=== PATIENT | female | born 1980 | race Hispanic/Latino ===

== ENCOUNTER 2019-01-01 01:51 | Emergency (ER) | payer OTHER ==
[~2019-01-01] VITALS: Ht 157.5 cm; Wt 82.6 kg
[~2019-01-01 01:51] MED LIST: CEFTIN500 MG PO; PEPCID20 MG PO; ULTRAM50 MG PO
--- OUTSIDE RECORDS SUMMARY | 2019-01-01 01:54 | XMS REPORT ---
[facility] Address Unknown Phone Unavailable Care Team Providers Care Swimming Coach Or Instructor Name Role Phone Unavailable Unavailable Payers Payer Name Policy Type Policy Number Effective Date Expiration Date Problems This patient has no known problems. Allergies, Adverse Reactions, Alerts Allergy Name Allergy Type Status Severity Reaction(s) Onset Date Inactive Date Treating Clinician Comments No Known Allergies DA Active U 2017-03-01 00:00:00 Medications This patient has no known medications. Results Test Description Test Time Test Comments Text Results Atomic Results Result Comments GLUBED 2018-12-07 17:29:00 GLUBED (test code=GLUBED) 134 MG/DL 70-110 Performed by certified suction operator at [facility] [id number] 12:03:00* Test Item Value Reference Range Comments GLUBED (test code=GLUBED) 149 MG/DL 70-110 Performed by certified suction operator at [facility] [id number] 08:19:00* Test Item Value Reference Range Comments GLUBED (test code=GLUBED) 137 MG/DL 70-110 Performed by certified suction operator at [facility] UA CULT [id number] 20:49:00* Test Item Value Reference Range Comments UA WBC (test code=WBCU) >50 WBC/HPF 0-3 UA SQUAMOUS CELLS (test code=SQU) 0-5 /HPF NONE SEEN UA CULTURE NEEDED? (test code=UACULT) YES,WBC>10 & EPI<=25 Criteria Culture Chk Criteria met, Urine Culture in-process. [id number] 20:19:00* Test Item Value Reference Range Comments GLUBED (test code=GLUBED) 206 MG/DL 70-110 Performed by certified suction operator at [facility] [id number] 16:48:00* Test Item Value Reference Range Comments GLUBED (test code=GLUBED) 153 MG/DL 70-110 Performed by certified suction operator at [facility] [id number] 12:22:00* Test Item Value Reference Range Comments GLUBED (test code=GLUBED) 154 MG/DL 70-110 Performed by certified suction operator at [facility] [id number] 11:13:00* Test Item Value Reference Range Comments GLUBED (test code=GLUBED) 139 MG/DL 70-110 Performed by certified suction operator at [facility] CBC W/AUTO [id number] 11:11:00* Test Item Value Reference Range Comments WHITE BLOOD CELL (test code=WBC) 7.11 x10 3/uL 4.5-11.0 RED BLOOD CELL (test code=RBC) 3.42 x10 6/uL 3.54-5.02 HEMOGLOBIN (test code=HGB) 8.3 g/dL 11.0-15.0 HEMATOCRIT (test code=HCT) 27.4 % 33.0-45.0 MEAN CELL VOLUME (test code=MCV) 80.1 fL 81.0-99.0 MEAN CELL HGB (test code=MCH) 24.3 pg 27.0-33.0 MEAN CELL HGB CONCETRATION (test code=MCHC) 30.3 g/dL 33.0-37.0 RED CELL DISTRIBUTION WIDTH CV (test code=RDW) 15.5 % 11.5-14.5 RED CELL DISTRIBUTION WIDTH SD (test code=RDW-SD) 45.1 fL 37.0-54.0 PLATELET COUNT (test code=PLT) 267 x10 3/uL 150-400 MEAN PLATELET VOLUME (test code=MPV) 11.1 fL 7.0-9.0 NEUTROPHIL % (test code=NT%) 61.1 % 56.0-77.0 IMMATURE GRANULOCYTE % (test code=IG%) 0.8 % 0.0-2.0 LYMPHOCYTE % (test code=LY%) 25.6 % 14.0-32.0 MONOCYTE % (test code=MO%) 9.6 % 4.8-9.0 EOSINOPHIL % (test code=EO%) 2.3 % 0.3-3.7 BASOPHIL % (test code=BA%) 0.6 % 0.0-2.0 NUCLEATED RBC % (test code=NRBC%) 0.0 % 0-0 NEUTROPHIL # (test code=NT#) 4.35 x10 3/uL 2.0-7.6 IMMATURE GRANULOCYTE # (test code=IG#) 0.06 x10 3/uL 0.00-0.03 LYMPHOCYTE # (test code=LY#) 1.82 x10 3/uL 1.0-3.8 MONOCYTE # (test code=MO#) 0.68 x10 3/uL 0.1-0.8 EOSINOPHIL # (test code=EO#) 0.16 x10 3/uL 0.0-0.2 BASOPHIL # (test code=BA#) 0.04 x10 3/uL 0.0-0.2 NUCLEATED RBC # (test code=NRBC#) 0.00 x10 3/uL 0.0-0.1 MANUAL DIFF REQUIRED (test code=MDIFF) NO SLIDE REVIEWED, CONSISTENT WITH AUTO DIFF. BASIC METABOLIC [id number] 08:02:00* Test Item Value Reference Range Comments SODIUM (test code=NA) 140 mEq/L 134-147 POTASSIUM (test code=K) 3.2 mEq/L 3.4-5.0 CHLORIDE (test code=CL) 111 mEq/L 100-108 CARBON DIOXIDE (test code=CO2) 20 mEq/L 21-33 ANION GAP (test code=GAP) 12 0-20 GLUCOSE (test code=GLU) 132 mg/dL 70-110 BLOOD UREA NITROGEN (test code=BUN) 8 mg/dL 7-18 GLOMERULAR FILTRATION RATE (test code=GFR) 113.1 105-110 Units of measure=ml/min/1.73 m2 CREATININE (test code=CREAT) 0.6 mg/dL 0.6-1.3 CALCIUM (test code=CA) 9.5 mg/dL 8.0-10.5 CBC W/AUTO [id number] 07:22:00* Test Item Value Reference Range Comments WHITE BLOOD CELL (test code=WBC) 7.11 x10 3/uL 4.5-11.0 RED BLOOD CELL (test code=RBC) 3.42 x10 6/uL 3.54-5.02 HEMOGLOBIN (test code=HGB) 8.3 g/dL 11.0-15.0 HEMATOCRIT (test code=HCT) 27.4 % 33.0-45.0 MEAN CELL VOLUME (test code=MCV) 80.1 fL 81.0-99.0 MEAN CELL HGB (test code=MCH) 24.3 pg 27.0-33.0 MEAN CELL HGB CONCETRATION (test code=MCHC) 30.3 g/dL 33.0-37.0 RED CELL DISTRIBUTION WIDTH CV (test code=RDW) 15.5 % 11.5-14.5 RED CELL DISTRIBUTION WIDTH SD (test code=RDW-SD) 45.1 fL 37.0-54.0 PLATELET COUNT (test code=PLT) 267 x10 3/uL 150-400 MEAN PLATELET VOLUME (test code=MPV) 11.1 fL 7.0-9.0 LYMPHOCYTE % (test code=LY%) % 14.0-32.0 MANUAL DIFF REQUIRED (test code=MDIFF) [id number] 21:20:00* Test Item Value Reference Range Comments GLUBED (test code=GLUBED) 198 MG/DL 70-110 Performed by certified suction operator at [facility] [id number] 17:28:00* Test Item Value Reference Range Comments GLUBED (test code=GLUBED) 193 MG/DL 70-110 Performed by certified suction operator at [facility] [id number] 12:55:00* Test Item Value Reference Range Comments GLUBED (test code=GLUBED) 168 MG/DL 70-110 Performed by certified suction operator at [facility] CBC W/AUTO [id number] 10:23:00* Test Item Value Reference Range Comments WHITE BLOOD CELL (test code=WBC) 10.59 x10 3/uL 4.5-11.0 RED BLOOD CELL (test code=RBC) 3.66 x10 6/uL 3.54-5.02 HEMOGLOBIN (test code=HGB) 8.9 g/dL 11.0-15.0 HEMATOCRIT (test code=HCT) 29.1 % 33.0-45.0 MEAN CELL VOLUME (test code=MCV) 79.5 fL 81.0-99.0 MEAN CELL HGB (test code=MCH) 24.3 pg 27.0-33.0 MEAN CELL HGB CONCETRATION (test code=MCHC) 30.6 g/dL 33.0-37.0 RED CELL DISTRIBUTION WIDTH CV (test code=RDW) 15.5 % 11.5-14.5 RED CELL DISTRIBUTION WIDTH SD (test code=RDW-SD) 44.9 fL 37.0-54.0 PLATELET COUNT (test code=PLT) 253 x10 3/uL 150-400 MEAN PLATELET VOLUME (test code=MPV) 11.3 fL 7.0-9.0 NEUTROPHIL % (test code=NT%) 71.4 % 56.0-77.0 IMMATURE GRANULOCYTE % (test code=IG%) 0.7 % 0.0-2.0 LYMPHOCYTE % (test code=LY%) 19.6 % 14.0-32.0 MONOCYTE % (test code=MO%) 7.4 % 4.8-9.0 EOSINOPHIL % (test code=EO%) 0.4 % 0.3-3.7 BASOPHIL % (test code=BA%) 0.5 % 0.0-2.0 NUCLEATED RBC % (test code=NRBC%) 0.0 % 0-0 NEUTROPHIL # (test code=NT#) 7.57 x10 3/uL 2.0-7.6 IMMATURE GRANULOCYTE # (test code=IG#) 0.07 x10 3/uL 0.00-0.03 LYMPHOCYTE # (test code=LY#) 2.08 x10 3/uL 1.0-3.8 MONOCYTE # (test code=MO#) 0.78 x10 3/uL 0.1-0.8 EOSINOPHIL # (test code=EO#) 0.04 x10 3/uL 0.0-0.2 BASOPHIL # (test code=BA#) 0.05 x10 3/uL 0.0-0.2 NUCLEATED RBC # (test code=NRBC#) 0.00 x10 3/uL 0.0-0.1 MANUAL DIFF REQUIRED (test code=MDIFF) NO SLIDE REVIEWED, CONSISTENT WITH AUTO DIFF. [id number] 08:03:00* Test Item Value Reference Range Comments GLUBED (test code=GLUBED) 146 MG/DL 70-110 Performed by certified suction operator at [facility] BASIC METABOLIC [id number] 07:39:00* Test Item Value Reference Range Comments SODIUM (test code=NA) 140 mEq/L 134-147 POTASSIUM (test code=K) 3.3 mEq/L 3.4-5.0 CHLORIDE (test code=CL) 110 mEq/L 100-108 CARBON DIOXIDE (test code=CO2) 22 mEq/L 21-33 ANION GAP (test code=GAP) 11 0-20 GLUCOSE (test code=GLU) 172 mg/dL 70-110 BLOOD UREA NITROGEN (test code=BUN) 7 mg/dL 7-18 GLOMERULAR FILTRATION RATE (test code=GFR) 94.7 105-110 Units of measure=ml/min/1.73 m2 CREATININE (test code=CREAT) 0.7 mg/dL 0.6-1.3 CALCIUM (test code=CA) 9.6 mg/dL 8.0-10.5 CBC W/AUTO [id number] 07:31:00* Test Item Value Reference Range Comments WHITE BLOOD CELL (test code=WBC) 10.59 x10 3/uL 4.5-11.0 RED BLOOD CELL (test code=RBC) 3.66 x10 6/uL 3.54-5.02 HEMOGLOBIN (test code=HGB) 8.9 g/dL 11.0-15.0 HEMATOCRIT (test code=HCT) 29.1 % 33.0-45.0 MEAN CELL VOLUME (test code=MCV) 79.5 fL 81.0-99.0 MEAN CELL HGB (test code=MCH) 24.3 pg 27.0-33.0 MEAN CELL HGB CONCETRATION (test code=MCHC) 30.6 g/dL 33.0-37.0 RED CELL DISTRIBUTION WIDTH CV (test code=RDW) 15.5 % 11.5-14.5 RED CELL DISTRIBUTION WIDTH SD (test code=RDW-SD) 44.9 fL 37.0-54.0 PLATELET COUNT (test code=PLT) 253 x10 3/uL 150-400 MEAN PLATELET VOLUME (test code=MPV) 11.3 fL 7.0-9.0 LYMPHOCYTE % (test code=LY%) % 14.0-32.0 MANUAL DIFF REQUIRED (test code=MDIFF) [id number] 23:33:00* Test Item Value Reference Range Comments GLUBED (test code=GLUBED) 148 MG/DL 70-110 Performed by certified suction operator at [facility] [id number]%2018-12-04 19:17:00* Test Item Value Reference Range Comments HGBA1C% (test code=HGBA1C%) 8.1 %A1C 4.8-6.0 [id number] 19:05:00* Test Item Value Reference Range Comments GLUBED (test code=GLUBED) 196 MG/DL 70-110 Performed by certified suction operator at [facility] [id number] 12:53:00* Test Item Value Reference Range Comments GLUBED (test code=GLUBED) 161 MG/DL 70-110 Performed by certified suction operator at [facility] - US TRANSVAGINAL NON [id number] 11:09:00 Name: NANCY LEE [facility] : 1980 Age/S: 38 / F [address] [place] [address] Blvd Unit #: [id number] Loc: [place] [address] Phys: Austin Dunn MD Acct: [id number] Dis Date: Status: ADM IN PHONE #: [phone] Exam Date: 12/04/2018 1100 FAX #: [phone] Reason: RIGHT ADNEXAL MASS SEEN ON CT EXAMS: CPT CODE: [id number] [place] [address] PROCEDURE: PELVIC ULTRASOUND INDICATION: Right adnexal fullness on CT scan performed earlier today. Previous left oophorectomy. COMPARISON: Abdominal pelvic CT scan of 12/04/2018. TECHNIQUE: Sonographic evaluation was performed using high resolution B-mode, pulse and color Doppler imaging. TRANSABDOMINAL SCAN: The uterus measures 9.1 cm in overall length with normal endometrial thickness of 12 mm. No focal myometrial or endometrial masses identified. TRANSVAGINAL SCAN: Transvaginal imaging was performed to better evaluate the endometrial space and ovaries. The right ovary is upper normal in overall size measuring 5.7 x 3.8 x 3.2 cm with estimated ovarian volume of 36 mL. This accounts for the fullness described on the previous CT scan. Normal follicles are present within the right ovary. Doppler analysis shows no evidence of ovarian torsion. The left ovary is absent. No free fluid in the cul-de-sac. IMPRESSION: 1. Upper normal size of the right ovary without evidence of an ovarian mass or torsion. The right ovary accounts for the pelvic finding described on the CT scan from earlier today. 2. Previous left oophorectomy. 3. Negative evaluation of the uterus. 4. Otherwise unremarkable exam. SL:01 at 1109 Reported and signed by: Evert Forrester M.D. PAGE 1 Signed Report (CONTINUED) Name: NANCY LEE [place] : 1980 Age/S: 38 / F [address] [place] [address] Unit #: [id number] Loc: [place] [address] Phys: Austin Dunn MD Acct: [id number] Dis Date: Status: ADM IN PHONE #: [phone] Exam Date: 12/04/2018 1100 FAX #: [phone] Reason: RIGHT A DNEXAL MASS SEEN ON CT EXAMS: CPT CODE: [id number] [place] [address] <Continued> CC: Austin Dunn MD Technologist: Adela Delgado RDMS()(OB) Trnscb Date/Time: 12/04/2018 (1109) [email or web address] Orig Print D/T: S: 12/04/2018 (1112) Probe: [id number] PAGE 2 Signed Report - US PELVIS [id number] 11:09:00 Name: NANCY LEE : 1980 Age/S: 38 / F [address] [place] [address] Unit #: [id number] Loc: [place] [address] Phys: Ari Kothari DO Acct: [id number] Dis Date: Status: ADM IN PHONE #: [phone] Exam Date: 12/04/2018 1100 FAX #: [phone] Reason: right adnexal mass seen on CT EXAMS: CPT CODE: [id number] US PELVIS COMPLETE 84226 PROCEDURE: PELVIC ULTRASOUND INDICATION: Right adnexal fullness on CT scan performed earlier today. Previous left oophorectomy. COMPARISON: Abdominal pelvic CT scan of 12/04/2018. TECHNIQUE: Sonographic evaluation was performed using high resolution B-mode, pulse and color Doppler imaging. TRANSABDOMINAL SCAN: The uterus measures 9.1 cm in overall length with normal endometrial thickness of 12 mm. No focal myometrial or endometrial masses identified. TRANSVAGINAL SCAN: Transvaginal imaging was performed to better evaluate the endometrial space and ovaries. The right ovary is upper normal in overall size measuring 5.7 x 3.8 x 3.2 cm with estimated ovarian volume of 36 mL. This accounts for the fullness described on the previous CT scan. Normal follicles are present within the right ovary. Doppler analysis shows no evidence of ovarian torsion. The left ovary is absent. No free fluid in the cul-de-sac. IMPRESSION: 1. Upper normal size of the right ovary without evidence of an ovarian mass or torsion. The right ovary accounts for the pelvic finding described on the CT scan from earlier today. 2. Previous left oophorectomy. 3. Negative evaluation of the uterus. 4. Otherwise unremarkable exam. SL:01 at 1102 Reported and signed by: Evert Forrester M.D. PAGE 1 Signed Report (CONTINUED) Name: NANCY LEE [facility] : 1980 Age/S: 38 / F [address] [place] [address] Unit #: [id number] Loc: [place] [address] Phys: Ari Kothari DO Acct: [id number] Dis Date: Status: ADM IN PHONE #: [phone] Exam Date: 12/04/2018 1100 FAX #: [phone] Reason: right a dnexal mass seen on CT EXAMS: CPT CODE: [id number] US PELVIS COMPLETE 63713 <Continued> CC: Ari Kothari DO Technologist: Adela Delgado RDMS()(OB) Trnscb Date/Time: 12/04/2018 (7037) [email or web address] Orig Print D/T: S: 12/04/2018 (9975) Probe: PAGE 2 Signed Report PROCALCITONIN (PCT)2018-12-04 10:03:00* Test Item Value Reference Range Comments PROCALCITONIN (PCT) (test code=PROCAL) 0.70 ng/mL 0.00-0.05 PROCALCITONIN (PCT) NORMAL RANGE (ADULT): <0.05 NG/ML. * a concentration <0.5 ng/mL represents a low risk of severe sepsis and/or septic shock.* a concentration >2 ng/mL represents a high risk of severe sepsis and/or septic shock.Nevertheless, concentrations <0.5 ng/mL do not exclude aninfection, on account of localized infections (withoutsystemic signs) which can be associated with such lowconcentrations, or a systemic infection in its initialstages (< 6 hours). Furthermore, increased procalcitonincan occur without infection. PCT concentrations between 0.5and 2.0 ng/mL should be interpreted taking into account thepatient's history. It is recommended to retest PCT within6-24 hours if any concentrations <2 ng/mL are obtained. CBC W/AUTO [id number] 09:32:00* Test Item Value Reference Range Comments WHITE BLOOD CELL (test code=WBC) 6.61 x10 3/uL 4.5-11.0 RED BLOOD CELL (test code=RBC) 4.20 x10 6/uL 3.54-5.02 HEMOGLOBIN (test code=HGB) 10.4 g/dL 11.0-15.0 HEMATOCRIT (test code=HCT) 32.3 % 33.0-45.0 MEAN CELL VOLUME (test code=MCV) 76.9 fL 81.0-99.0 MEAN CELL HGB (test code=MCH) 24.8 pg 27.0-33.0 MEAN CELL HGB CONCETRATION (test code=MCHC) 32.2 g/dL 33.0-37.0 RED CELL DISTRIBUTION WIDTH CV (test code=RDW) 15.1 % 11.5-14.5 RED CELL DISTRIBUTION WIDTH SD (test code=RDW-SD) 42.2 fL 37.0-54.0 PLATELET COUNT (test code=PLT) 284 x10 3/uL 150-400 MEAN PLATELET VOLUME (test code=MPV) 10.8 fL 7.0-9.0 NEUTROPHIL % (test code=NT%) 84.1 % 56.0-77.0 IMMATURE GRANULOCYTE % (test code=IG%) 0.5 % 0.0-2.0 LYMPHOCYTE % (test code=LY%) 13.3 % 14.0-32.0 MONOCYTE % (test code=MO%) 1.5 % 4.8-9.0 EOSINOPHIL % (test code=EO%) 0.3 % 0.3-3.7 BASOPHIL % (test code=BA%) 0.3 % 0.0-2.0 NUCLEATED RBC % (test code=NRBC%) 0.0 % 0-0 NEUTROPHIL # (test code=NT#) 5.56 x10 3/uL 2.0-7.6 IMMATURE GRANULOCYTE # (test code=IG#) 0.03 x10 3/uL 0.00-0.03 LYMPHOCYTE # (test code=LY#) 0.88 x10 3/uL 1.0-3.8 MONOCYTE # (test code=MO#) 0.10 x10 3/uL 0.1-0.8 EOSINOPHIL # (test code=EO#) 0.02 x10 3/uL 0.0-0.2 BASOPHIL # (test code=BA#) 0.02 x10 3/uL 0.0-0.2 NUCLEATED RBC # (test code=NRBC#) 0.00 x10 3/uL 0.0-0.1 MANUAL DIFF REQUIRED (test code=MDIFF) NO SLIDE REVIEWED, CONSISTENT WITH AUTO DIFF. - CT ABD PELVIS W/O [id number] 08:49:00 Name: NANCY LEE [facility] : 1980 Age/S: 38 / F [address] [place] [address] Unit #: [id number] Loc: [facility] [place] [address] Phys: Haylee العلي ADVANCED PRACTICE PROVIDER Acct: [id number] Dis Date: Status: REG ER PHONE #: [phone] Exam Date: 12/04/2018 0835 FAX #: [phone] Reason: fever, urinary frequency EXAMS: CPT CODE: [id number] CT ABD PELVIS W/O CONT 56243 PROCEDURE: CT abdomen and pelvis without contrast. Reconstruction images. INDICATION: Fever, urinary frequency. TECHNIQUE: GI CONTRAST: None. IV CONTRAST: None. Helical axial imaging was performed from the diaphragm through the symphysis. Coronal and sagittal reformations obtained. Total CT radiation dose: SKY=164.37 mGy-cm COMPARISON: None. FINDINGS: This examination is limited for the evaluation of solid organs and vascular structures due to lack of intravenous contrast. LOWER CHEST: The visualized lung bases are clear. Normal size of the heart is noted. SOLID ORGANS: No focal hepatic lesion or intrahepatic biliary ductal dilatation is seen. Multiple gallstones are noted. No gallbladder wall thickening or pericholecystic fluid is seen. The spleen, pancreas, and adrenal glands are normal in non-enhanced appearance. Staghorn calculi are seen in the right renal collecting system extending into the calyces. No hydronephrosis is noted. Mild to moderate right hydroureter is seen. No distal ureteral calculus is noted. Multiple tiny nonobstructing left renal calculi are noted. No left-sided hydronephrosis is seen. No renal mass or cyst is identi fied. BOWEL: The small bowel and colon are normal in caliber witho ut wall thickening. A normal appendix is identified. PERITONEUM: No free intraperitoneal fluid or air. No ventral wall defect s. RETROPERITONEUM: The aorta is normal in caliber. No lymphadenop athy is noted. PAGE 1 Signed Report (CONTINUED) Name: NANCY LEE [facility] : 1980 Age/S: 38 / F [address] Unit #: [id number] Loc: [place] [address] Phys: Haylee العلي ADVANCED PRACTICE PROVIDER Acct: [id number] Dis Date: Status: REG ER PHONE #: [phone] Exam Date: 12/04/2018 0835 FAX #: [phone] Reason: fever, urinary frequency EXAMS: CPT CODE: [id number] CT ABD PELVIS W/O CONT 64481 < Continued> PELVIS: The visualized urinary bladder wall is normal thickness. Prominent right pelvic soft tissue structure is seen on series 2, image 101 measuring 4.8 x 3.2 cm. 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 No acute osseous abnormality is seen. No destructive lytic or blastic osseous lesion is noted. IMPRESSION: 1. Staghorn calculi of the right kidney. No hydronephrosis. 2. Mild to moderate right hydroureter. No distal right ureteral calculus. 3. Nonobstructing left nephrolithiasis. No left hydronephrosis. 4. Prominent right pelvic soft tissue structure measures 4.8 cm. This may represent an exophytic fibroid or right adnexal mass. Pelvic ultrasound is available for further evaluation. 5. Cholelithiasis without CT evidence for focal cystitis. SL: [id number] at 0849 Reported and signed by: Alexander Fong M.D. CC: Ari Kothari DO; Haylee العلي NP Technologist:RT Sumi(R)(CT) CTDI: DLP: Trnscb Date/Time: 12/04/2018 (0849) [email or web address] Orig Print D/T: S: 12/04/2018 (0852) CTDI: DLP: PAGE 2 Signed Report URINALYSIS [id number] 08:40:00* Test Item Value Reference Range Comments UA COLOR (test code=COLU) KARLI YEL/STRAW UA APPEARANCE (test code=APPU) CLOUDY CLEAR UA GLUCOSE DIPSTICK (test code=DGLUU) 1+ NEGATIVE UA BILIRUBIN DIPSTICK (test code=BILU) NEGATIVE NEGATIVE UA KETONE DIPSTICK (test code=KETU) NEGATIVE NEGATIVE UA SPECIFIC GRAVITY (test code=SGU) 1.018 1.005-1.030 UA BLOOD DIPSTICK (test code=LOAN) 2+ NEGATIVE UA PH DIPSTICK (test code=RPISCA) 5.0 5.0-7.0 UA PROTEIN DIPSTICK (test code=PROU) 2+ NEGATIVE UA UROBILINIOGEN DIPSTICK (test code=URO) 4.0 mg/dL 0.2-1.0 UA NITRITE DIPSTICK (test code=CELINE) NEGATIVE NEGATIVE UA LEUKOCYTE ESTERASE DIPSTICK (test code=LEUU) 3+ NEGATIVE UA WBC (test code=WBCU) >50 WBC/HPF 0-3 UA RBC (test code=RBCU) >50 RBC/HPF 0-3 UA BACTERIA (test code=BACU) TRACE /HPF NONE SEEN UA SQUAMOUS CELLS (test code=SQU) 0-5 /HPF NONE SEEN UA HYALINE CAST (test code=HYALU) 3-5 /LPF NONE SEEN UA MUCUS (test code=MUCU) 2+ /LPF NONE SEEN UA CULT [id number] 08:40:00* Test Item Value Reference Range Comments UA CULTURE NEEDED? (test code=UACULT) YES,WBC>10 & EPI<=25 Criteria Culture Chk Criteria met, Urine Culture in-process. UR HCG [id number] 08:26:00* Test Item Value Reference Range Comments UR HCG QUAL (test code=HCGQLU) NEGATIVE NEGATIVE HEPATIC FUNCTION [id number] 08:17:00* Test Item Value Reference Range Comments TOTAL PROTEIN (test code=PROT) 7.8 g/dL 6.4-8.2 ALBUMIN (test code=ALB) 2.80 g/dL 3.4-5.0 BILIRUBIN TOTAL (test code=BILT) 0.60 mg/dL 0.0-1.0 BILIRUBIN DIRECT (test code=BILD) 0.30 MG/DL 0.0-0.30 BILIRUBIN INDIRECT (test code=BILIND) 0.30 MG/DL SGOT/AST (test code=AST) 14 IUnit/L 15-37 SGPT/ALT (test code=ALT) 17 IUnit/L 15-65 ALKALINE PHOSPHATASE TOTAL (test code=ALKP) 138 IUnit/L 20-125 CHEMISTRY 8 [id number] 08:06:00* Test Item Value Reference Range Comments ISTAT-SODIUM (test code=NAP) MMOL/L 134-147 ISTAT-POTASSIUM (test code=KP) MMOL/L 3.4-5.0 ISTAT-CHLORIDE (test code=CLP) MMOL/L 100-108 ISTAT CARBON DIOXIDE (test code=ISTAT-CO2) mmol/L 21-33 ISTAT CALCIUM IONIZED (test code=ISTAT-PARK) MG/DL 1.12-1.32 ISTAT-GLUCOSE (test code=GLUP) MG/DL 70-110 ISTAT-BUN (test code=BUNP) MG/DL 7-18 BEDSIDE CREATININE (test code=CREATBED) MG/DL 0.6-1.3 GLOMERULAR FILTRATION RATE POC (test code=GFRBED) 101 ML/MIN CHEMISTRY 8 [id number] 08:06:00* Test Item Value Reference Range Comments ISTAT-SODIUM (test code=NAP) 138 MMOL/L 134-147 ISTAT-POTASSIUM (test code=KP) 3.1 MMOL/L 3.4-5.0 ISTAT-CHLORIDE (test code=CLP) 101 MMOL/L 100-108 Performed by certified suction operator at [facility] ISTAT CARBON DIOXIDE (test code=ISTAT-CO2) 21.0 mmol/L 21-33 ISTAT CALCIUM IONIZED (test code=ISTAT-PARK) 1.30 MG/DL 1.12-1.32 ISTAT-GLUCOSE (test code=GLUP) 225 MG/DL 70-110 ISTAT-BUN (test code=BUNP) 11 MG/DL 7-18 BEDSIDE CREATININE (test code=CREATBED) 0.7 MG/DL 0.6-1.3 GLOMERULAR FILTRATION RATE POC (test code=GFRBED) 101 ML/MIN LACTIC ACID [id number] 08:05:00* Test Item Value Reference Range Comments LACTIC ACID POC (test code=LACTP) 1.1 MMOL/L 0.90-1.70 Performed by certified suction operator at [facility] CBC W/AUTO [id number] 07:57:00* Test Item Value Reference Range Comments WHITE BLOOD CELL (test code=WBC) 6.61 x10 3/uL 4.5-11.0 RED BLOOD CELL (test code=RBC) 4.20 x10 6/uL 3.54-5.02 HEMOGLOBIN (test code=HGB) 10.4 g/dL 11.0-15.0 HEMATOCRIT (test code=HCT) 32.3 % 33.0-45.0 MEAN CELL VOLUME (test code=MCV) 76.9 fL 81.0-99.0 MEAN CELL HGB (test code=MCH) 24.8 pg 27.0-33.0 MEAN CELL HGB CONCETRATION (test code=MCHC) 32.2 g/dL 33.0-37.0 RED CELL DISTRIBUTION WIDTH CV (test code=RDW) 15.1 % 11.5-14.5 RED CELL DISTRIBUTION WIDTH SD (test code=RDW-SD) 42.2 fL 37.0-54.0 PLATELET COUNT (test code=PLT) 284 x10 3/uL 150-400 MEAN PLATELET VOLUME (test code=MPV) 10.8 fL 7.0-9.0 LYMPHOCYTE % (test code=LY%) % 14.0-32.0 MANUAL DIFF REQUIRED (test code=MDIFF) - XR CHEST 1 [id number] 07:37:00 FAX: Ari Hein DO [phone] [place]: St: REG FAX: Haylee العلي NP [phone] Name: NANCY LEE [facility] : 1980 Age/S: 38/F [address] [place] [address] Unit #: [id number] Loc: [place] [address] Phys: Haylee العلي NP Acct: [id number] Dis Date: Status: REG ER PHONE #: [phone] Exam Date: 12/04/2018 0734 FAX #: [phone] Reason: fever, tachycardia EXAMS: CPT CODE: [id number] XR CHEST 1 V [id number] EXAM: CHEST SINGLE VIEW HISTORY: 38-year-old female with fever, tachycardia COMPARISON: None. FINDINGS: The lungs are clear. The cardiomediastinal silhouette is normal for projection. No acute osseous abnormality. IMPRESSION: 1. No acute cardiopulmonary abnormality. SL: CY-H at 0737 Reported and signed by: Anna Frazier M.D. CC: Ari Kothari DO; Haylee العلي NP Technologist: RT Guillermina(Priscilla) Trnscrd Date/Time/By: 12/04/2018 (0737) : By: [email or web address] Orig Print D/T: S: 12/04/2018 (0740) PAGE 1 Signed Report
[2019-01-01] MEDS ORDERED: ONDANSETRON HCL INJ 2MG/ML 2ML 2 MG/ML VIAL IV STA (01:59)
[2019-01-01 02:10] LABS: BASOPHILS # (AUTO) 0.1 (0.0-0.1); BASOPHILS % 0.6 % (0.0-1.0); EOSINOPHILS # (AUTO) 0.1 (0.0-0.4); EOSINOPHILS % 0.6 % (0.0-6.0); HEMATOCRIT 32.7 % (34.2-44.1); HEMOGLOBIN 10.5 g/dL (12.0-16.0); LYMPHOCYTES # (AUTO) 1.4 (1.0-3.2); LYMPHOCYTES % 17.5 % (18.0-39.1); MEAN CORPUSCULAR HEMOGLOBIN 24.6 pg (28-32); MEAN CORPUSCULAR HGB CONC 32.1 g/dL (31-35); MEAN CORPUSCULAR VOLUME 76.8 fL (81-99); MONOCYTES # (AUTO) 0.4 (0.2-0.8); NEUTROPHILS # (AUTO) 6.1 (2.1-6.9); NEUTROPHILS % 76.1 % (38.7-80.0); PLATELET COUNT 297 x10e3/uL (140-360); RED BLOOD COUNT 4.26 x10e6/uL (3.6-5.1); RED CELL DISTRIBUTION WIDTH 16.5 % (11.7-14.4)
[2019-01-01 02:29] LABS: ALANINE AMINOTRANSFERASE 15 IU/L (0-55); ALBUMIN 3.9 g/dL (3.5-5.0); ALKALINE PHOSPHATASE 94 IU/L (40-150); ANION GAP 12.3 mmol/L (8-16); BLOOD UREA NITROGEN 9 mg/dL (7-26); BUN/CREATININE RATIO 9 (6-25); CALCIUM 11.3 mg/dL (8.4-10.2); CARBON DIOXIDE 22 mmol/L (22-29); CHLORIDE 107 mmol/L (98-107); CREATININE, SERUM 0.96 mg/dL (0.57-1.11); EST GLOMERULAR FILTRATION RATE > 60 ML/MIN (60-); GLUCOSE 182 mg/dL (74-118); POTASSIUM 3.3 mmol/L (3.5-5.1); SODIUM 138 mmol/L (136-145)
[2019-01-01] MEDS ORDERED: KETOROLAC TROMETHAMINE 30 MG/ML VIAL IV STA (02:42)
--- NOTE | 2019-01-01 03:09 | Diagnostic Imaging Report ---
CT Abdomen and Pelvis without contrast INDICATION: Left flank pain TECHNIQUE: Thin collimation axial images obtained from the diaphragm to the level of the pubic symphysis without nonionic intravenous contrast. Dose reduction techniques used: Automated exposure control, adjustment of the mAs and/or kVp according to patient size, standardized low-dose protocol, and/or iterative reconstruction technique. RADIATION DOSE: Total DLP: 522.1 mGy*cm Estimated effective dose: (DLP x 0.015 x size factor) mSv CTDIvol has been reviewed. It is below the limits set by the Radiation Protocol Committee (RPC). COMPARISON: Report of CT abdomen/pelvis performed 01/04/2017. ABDOMEN FINDINGS: Lung Bases: Clear. The visualized portion of the mediastinum is normal. Liver: Normal in attenuation without mass. Gallbladder: Present with multiple intraluminal gallstones measure up to 15 mm. No gallbladder wall thickening or pericholecystic inflammation. No ductal dilatation. Pancreas: Normal attenuation without mass. Spleen: Measures 14.3 cm in maximum length. Adrenal Glands: No evidence for mass. Kidneys: Right: Staghorn calculus fills the renal collecting system. No perinephric inflammation or renal edema. No soft tissue mass. Left: Multiple punctate intrarenal calculi. There is mild renal edema and perinephric inflammation. The collecting system is distended. No cortical mass Lymph Nodes: An aortocaval lymph node measures 7 mm in short axis. This is nonspecific. Aorta: Normal in diameter. PELVIS FINDINGS: Bowel: Stomach: Normal. Small Bowel: Normal in caliber with normal wall thickness. Large Bowel: Normal in caliber with normal wall thickness. Appendix: Normal. Bladder: Normal. Ureters: The right ureter is mildly distended to the level of the distal ureter. A pixel-sized hyperdensity in the mid ureter along the anterior wall may represent a calculus (axial image #105). The left ureter is mildly distended with diffuse periureteric inflammation. There is a calculus in the left ureteral orifice at the trigone measuring 3 mm. The uterus is present and lobulated in contour. No adnexal mass. Peritoneum/retroperitoneum: No free fluid or fluid collection. Bones: Minimal endplate degenerative changes of the spine. Mild levoscoliosis which may be positional. There bone islands in the L5 vertebral bodies. Soft tissues: Fat-containing umbilical hernia has an aperture of 16 mm. IMPRESSION: 1. Calculus in the left ureteral orifice with mild left hydroureteronephrosis. Punctate left intrarenal calculi. 2. Staghorn calculus in the right kidney. Distention of the right ureter to the level of the distal ureter without evidence of obstructing calculus. Nonobstructing calculus in the mid ureter. 3. Mild, nonspecific splenomegaly. 4. Cholelithiasis. Signed by: Dr. Antionette Moore MD on 01/01/2019 3:05 AM
[2019-01-01 03:48] LABS: BILIRUBIN,URINE NEGATIVE (NEGATIVE); CLARITY,URINE CLEAR (CLEAR); COLOR,URINE YELLOW (YELLOW); KETONES,URINE NEGATIVE (NEGATIVE); NITRITE,URINE NEGATIVE (NEGATIVE); PROTEIN,URINE DIPSTICK NEGATIVE (NEGATIVE); URINE UROBILINOGEN 1 mg/dL (0.2 - 1)
[2019-01-01 03:49] LABS: LEUKOCYTE ESTERASE ,URINE 1+ (NEGATIVE)
[2019-01-01 03:54] LABS: BACTERIA,URINE RARE /HPF; CALCIUM OXALATE CRYSTALS,UR FEW (FEW); EPITHELIAL CELLS,URINE FEW /LPF; RBC,URINE >50 /HPF (0-5)
[2019-01-01] MEDS ORDERED: CEFTRIAXONE SOD 1 GM/NS 50 ML 50 ML IV ONE (04:00)
[2019-01-01 04:28] VITALS: BP 138/88
== END 2019-01-01 04:32 | disposition home or self-care (01) ==
LOC: ER 01:51
DX: N13.6 Pyonephrosis (principal); Z87.442 Personal history of urinary calculi; Z82.49 Family history of ischemic heart disease and other diseases of the circulatory system
CPT/HCPCS: 36415; 74176; 80053; 81001; 84702; 85025; 99284; J0696; J1885; J2405